=== PATIENT | female | born 1945 | race American Indian/Alaskan Native ===

== ENCOUNTER 2018-07-24 09:04 | Emergency (ER) | payer MEDICARE ==
--- NOTE | 2018-07-24 11:25 | XRay Report ---
CHEST XRAY, 2 VIEWS: History: Shortness of breath, cough. Findings: There is mild cardiomegaly. Pulmonary vessels are within normal limits. The lungs are clear and fully expanded. No infiltrate, pleural effusion or pneumothorax. Normal thoracic cage. IMPRESSION: Cardiomegaly.
--- NOTE | 2018-07-24 14:56 | Emergency Department Report ---
ED Shortness of Breath HPI - General Chief Complaint: Dyspnea/Respdistress Stated Complaint: D.I.B Time Seen by Provider: 07/24/18 14:26 Source: patient Mode of arrival: Ambulatory Limitations: No Limitations - History of Present Illness Initial Comments: 73-year-old female with nonproductive cough 1 week. Patient reports shortness of breath, wheezing since yesterday. Denies fever, chest pain. MD Complaint: shortness of breath -: week(s) (1) Severity: mild Improves With: rest Worsens With: exertion Context: recent URI Associated Symptoms: cough - Related Data Previous Rx's Medication Instructions Recorded Last Taken Type ALBUTEROL Inhaler(NF) [VENTOLIN 1 puff IH Q4HR PRN #1 inha 07/24/18 Unknown Rx Inhaler(NF)] Benzonatate [Tessalon Perles] 100 mg PO Q8HR PRN #20 capsule 07/24/18 Unknown Rx Allergies Allergy/AdvReac Type Severity Reaction Status Date / Time No Known Allergies Allergy Unverified 07/24/18 09:10 ED Review of Systems ROS: Stated complaint: D.I.B Other details as noted in HPI Comment: All other systems reviewed and negative Constitutional: denies: chills, fever Respiratory: cough, shortness of breath, wheezing Cardiovascular: denies: chest pain ED Past Medical Hx - Past Medical History Hx Diabetes: Yes - Social History Smoking Status: Never Smoker Substance Use Type: None - Medications Home Medications: Home Medications Medication Instructions Recorded Confirmed Last Taken Type ALBUTEROL Inhaler(NF) [VENTOLIN 1 puff IH Q4HR PRN #1 inha 07/24/18 Unknown Rx Inhaler(NF)] Benzonatate [Tessalon Perles] 100 mg PO Q8HR PRN #20 capsule 07/24/18 Unknown Rx ED Physical Exam - General Limitations: No Limitations General appearance: alert, in no apparent distress - Head Head exam: Present: atraumatic, normocephalic - Eye Eye exam: Present: normal appearance - ENT ENT exam: Present: mucous membranes moist - Neck Neck exam: Present: normal inspection - Respiratory Respiratory exam: Present: normal lung sounds bilaterally. Absent: respiratory distress - Cardiovascular Cardiovascular Exam: Present: regular rate, normal rhythm - GI/Abdominal GI/Abdominal exam: Present: soft. Absent: tenderness - Extremities Exam Extremities exam: Present: normal inspection - Neurological Exam Neurological exam: Present: alert, oriented X3 - Psychiatric Psychiatric exam: Present: normal affect, normal mood - Skin Skin exam: Present: warm, dry, intact, normal color ED Course Vital Signs 07/24/18 07/24/18 09:10 14:24 Temperature 99 F 98.5 F Pulse Rate 60 83 Respiratory 18 16 Rate Blood Pressure 168/83 Blood Pressure 181/101 [Right] O2 Sat by Pulse 94 95 Oximetry ED Medical Decision Making - EKG Data -: EKG Interpreted by Me EKG shows normal: sinus rhythm, axis, intervals, QRS complexes, ST-T waves Rate: normal - EKG Data Interpretation: no acute changes - Radiology Data Radiology results: report reviewed, image reviewed - Medical Decision Making 33-year-old female with cough 1 week, shortness of breath and wheezing for the last few days. Patient afebrile. Patient in no respiratory distress, lungs clear. Chest x-ray shows cardiomegaly, no pulmonary edema, pleural effusions or pneumonia. EKG unremarkable. Patient likely has bronchitis. Will give prescription for Tessalon Perles and albuterol inhaler. Return precautions given. - Differential Diagnosis bronchitis, pulm edema, pneumonia Critical care attestation.: If time is entered above; I have spent that time in minutes in the direct care of this critically ill patient, excluding procedure time. ED Disposition Clinical Impression: Bronchitis, acute, Essential hypertension Disposition: - TO HOME OR SELFCARE Is pt being admited?: No Condition: Stable Instructions: Acute Bronchitis (ED), Hypertension (ED) Prescriptions: ALBUTEROL Inhaler(NF) [VENTOLIN Inhaler(NF)] 1 puff IH Q4HR PRN #1 inha PRN Reason: Wheezing Benzonatate [Tessalon Perles] 100 mg PO Q8HR PRN #20 capsule PRN Reason: Cough Referrals: PRIMARY CARE, [Primary Care Provider] - 3-5 Days Time of Disposition: 14:56
[2018-07-24 15:37] VITALS: BP 160/94
== END 2018-07-24 15:34 | disposition home or self-care (01) ==
LOC: ED 09:04
DX: J20.9 Acute bronchitis, unspecified (principal); E11.9 Type 2 diabetes mellitus without complications; I10 Essential (primary) hypertension
CPT/HCPCS: 71046; 93005; 93010